=== PATIENT | female | born 1935 | race Two or more races ===

== ENCOUNTER 2019-10-21 08:49 | Outpatient (CLI) | payer OTHER ==
[2019-10-21] MEDS ORDERED: ELIQUIS5 MG PO (12:54)
[2019-10-21] MEDS ORDERED: LEVO-T112 MCG PO (12:55)
[2019-10-21] MEDS ORDERED: COZAAR100 MG PO (12:55)
[2019-10-21] MEDS ORDERED: NORVASC10 MG PO (12:55)
[2019-10-21] MEDS ORDERED: LIPITOR40 MG PO (12:55)
== END 2019-10-21 09:13 | disposition home or self-care (01) ==
LOC: LAB 08:49
DX: D64.89 Other specified anemias (principal); E88.89 Other specified metabolic disorders; D68.8 Other specified coagulation defects; N39.0 Urinary tract infection, site not specified; Z22.322 Carrier or suspected carrier of Methicillin resistant Staphylococcus aureus; E13.69 Other specified diabetes mellitus with other specified complication; E55.9 Vitamin D deficiency, unspecified

== ENCOUNTER → 2019-10-21 | Outpatient (CLI) | payer OTHER ==
[~2019-10-21] MED LIST: COZAAR100 MG PO; ELIQUIS5 MG PO; LEVO-T112 MCG PO; LIPITOR40 MG PO; NORVASC10 MG PO
== END | disposition home or self-care (01) ==
LOC: RAD 13:37
DX: Z76.89 Persons encountering health services in other specified circumstances (principal); M79.652 Pain in left thigh; M79.605 Pain in left leg; Z96.651 Presence of right artificial knee joint